=== PATIENT | male | born 1960 | race Two or more races ===

== ENCOUNTER → 2018-05-06 | Outpatient (CLI) | payer OTHER | END | disposition home or self-care (01) | LOC: LAB 18:20 | DX: Z11.59 Encounter for screening for other viral diseases (principal); Z02.1 Encounter for pre-employment examination ==

== ENCOUNTER 2018-12-03 12:17 | Emergency (ER) | payer OTHER ==
[~2018-12-03] VITALS: Ht 188 cm; Wt 120.2 kg
[2018-12-03] MEDS ORDERED: LIPITOR20 MG PO (12:22)
[2018-12-03] MEDS ORDERED: ATACAND32 MG PO (12:22)
== END 2018-12-03 12:46 | disposition home or self-care (01) ==
LOC: ER 12:17
DX: S61.211A Laceration without foreign body of left index finger without damage to nail, initial encounter (principal); X58.XXXA Exposure to other specified factors, initial encounter; Y93.89 Activity, other specified; Y92.018 Other place in single-family (private) house as the place of occurrence of the external cause; Y99.8 Other external cause status

== ENCOUNTER 2020-03-14 11:14 | Outpatient (CLI) | payer OTHER ==
[~2020-03-14 11:14] MED LIST: ATACAND32 MG PO; LIPITOR20 MG PO
== END 2020-03-14 15:00 | disposition home or self-care (01) ==
LOC: PPH VACUNA 11:14
DX: Z23 Encounter for immunization (principal)

== ENCOUNTER 2021-03-20 07:09 | Outpatient (CLI) | payer OTHER | END 2021-03-20 11:37 | disposition home or self-care (01) | LOC: LAB 07:09 | PROVIDERS: ATTEND Internal Medicine Pulmonary Disease | DX: I10 Essential (primary) hypertension (principal); Z86.16 Personal history of COVID-19; E78.00 Pure hypercholesterolemia, unspecified; E03.8 Other specified hypothyroidism; N18.30 Chronic kidney disease, stage 3 unspecified ==

== ENCOUNTER 2021-05-24 17:39 | Outpatient (CLI) | payer OTHER | END 2021-05-24 17:46 | disposition home or self-care (01) | LOC: LAB 17:39 | PROVIDERS: ATTEND Urology | DX: R97.20 Elevated prostate specific antigen [PSA] (principal) ==

== ENCOUNTER 2021-06-22 07:40 | Outpatient (CLI) | payer OTHER ==
[2021-06-22] MEDS ORDERED: AMLODIPINE-OLM1 EAC2 (09:31)
[2021-06-22] MEDS ORDERED: ATACAND4 MG (09:31)
[2021-06-22] MEDS ORDERED: CRESTOR10 MG PO (09:31)
== END 2021-06-22 08:10 | disposition home or self-care (01) ==
LOC: SONOGRAMA 07:40
PROVIDERS: ATTEND Urology
DX: R97.20 Elevated prostate specific antigen [PSA] (principal)

== ENCOUNTER 2021-06-22 09:17 | Emergency (ER) | payer OTHER ==
[~2021-06-22] VITALS: Ht 188 cm; Wt 117.9 kg
[2021-06-22] MEDS ORDERED: ATACAND4 MG (09:31)
[2021-06-22] MEDS ORDERED: AMLODIPINE-OLM1 EAC2 (09:31)
[2021-06-22] MEDS ORDERED: CRESTOR10 MG PO (09:31)
== END 2021-06-22 12:24 | disposition home or self-care (01) ==
LOC: ER 09:17
DX: R42 Dizziness and giddiness (principal); I10 Essential (primary) hypertension

== ENCOUNTER 2021-07-31 07:40 | Outpatient (CLI) | payer OTHER ==
[~2021-07-31 07:40] MED LIST changes: +AMLODIPINE-OLM1 EAC2; +ATACAND4 MG; +CRESTOR10 MG PO
== END 2021-07-31 09:32 | disposition home or self-care (01) ==
LOC: NUCLEAR 07:40
PROVIDERS: ATTEND Internal Medicine Cardiovascular Disease
DX: I10 Essential (primary) hypertension (principal); R07.89 Other chest pain